=== PATIENT | female | born 1980 | race Caucasian/White ===

== ENCOUNTER 2017-06-19 12:49 | Emergency (ER) | payer BC ==
[2017-06-19 12:57] VITALS: BP 130/70
--- NOTE | 2017-06-19 13:06 | UC ---
Throat Pain/Nasal [place] HPI - HPI Summary HPI Summary: sinus pain and pressure x 5 days cold symptoms x 10 days nasal congestion , pnd, cough , no fever, no chills - History of Current Complaint Chief Complaint: UCRespiratory Stated Complaint: SINUS COMPLAINT Time Seen by Provider: 06/19/17 12:55 Hx Obtained From: Patient Hx Last Menstrual Period: 05/30/17 ?: No Onset/Duration: Gradual Onset, Lasting Days - 5, Still Present Severity: Moderate Cough: Nonproductive Associated Signs & Symptoms: Positive: Sinus Discomfort, Nasal Discharge. Negative: Dysphagia, FB Sensation, Drooling, Wheezing, Hoarseness, Vomiting, Rash - Allergies/Home Medications Allergies/Adverse Reactions: Allergies Allergy/AdvReac Type Severity Reaction Status Date / Time No Known Allergies Allergy Verified 06/19/17 12:57 PMH/Surg Hx/FS Hx/Imm Hx Previously Healthy: Yes - Surgical History Surgical History: Yes Surgery Procedure, Year, and Place: c section 06/2013 - Family History Known Family History: Negative: Diabetes - Social History Alcohol Use: Occasionally Substance Use Type: None Smoking Status (MU): Never Smoked Tobacco - Immunization History Most Recent Influenza Vaccination: no 2016 Review of Systems Constitutional: Negative Skin: Negative Eyes: Negative ENT: Ear Ache, Nasal Discharge, Sinus Congestion, Sinus Pain/Tenderness Respiratory: Cough Cardiovascular: Negative Is Patient Immunocompromised?: No All Other Systems Reviewed And Are Negative: Yes Physical Exam Triage Information Reviewed: Yes Appearance: Well-Appearing, No Pain Distress, Well-Nourished Vital Signs: Initial Vital Signs Temp 99.1 F 06/19/17 12:53 Pulse 73 06/19/17 12:53 Resp 18 06/19/17 12:53 BP 130/70 06/19/17 12:53 Pulse Ox 100 06/19/17 12:53 Vital Signs Reviewed: Yes Eyes: Positive: Conjunctiva Clear ENT: Positive: Normal ENT inspection, Hearing grossly normal, Pharynx normal, Nasal congestion, Nasal drainage, TMs normal, Sinus tenderness Neck exam: Normal Neck: Positive: Supple, Nontender, No Lymphadenopathy Respiratory: Positive: Chest non-tender, Lungs clear, Normal breath sounds, No respiratory distress Cardiovascular: Positive: RRR, No Murmur, Pulses Normal Skin Exam: Normal Throat Pain/Nasal Course/Dx - Differential Dx/Diagnosis Provider Diagnoses: sinusitis Discharge - Discharge Plan Condition: Stable Disposition: HOME Prescriptions: Amoxicillin/Clavulanate TAB* [Augmentin TAB 875*] 875 mg PO BID #20 tab Fluticasone NASAL * [Flonase *] 2 spray BOTH NARES DAILY #1 spray Patient Education Materials: Sinusitis (ED) Referrals: Mary Henry MD [Primary Care Provider] - If Needed
== END 2017-06-19 13:10 | disposition home or self-care (01) ==
LOC: UCCORT 12:49
DX: J32.9 Chronic sinusitis, unspecified (principal)
CPT/HCPCS: 99202; G0463